=== PATIENT | female | born 2000 | race Caucasian/White ===

== ENCOUNTER → 2021-11-22 17:50 | Outpatient (BNVA) | payer MEDICAID, SELFPAY | PROVIDERS: Family Provider Internal Medicine; PCP Nurse Practitioner; Visit Provider Family Medicine | DX: Z20.822 Contact with and (suspected) exposure to COVID-19 (principal); Z20.828 Contact with and (suspected) exposure to other viral communicable diseases | CPT/HCPCS: 87426; 87635 ==

== ENCOUNTER → 2022-02-03 07:45 | Outpatient (BNVA) | payer OTHER, SELFPAY | PROVIDERS: Family Provider Internal Medicine; PCP Nurse Practitioner; Visit Provider Nurse Practitioner Women's Health | DX: N92.6 Irregular menstruation, unspecified (principal) | CPT/HCPCS: 81025 ==

== ENCOUNTER → 2022-03-02 10:12 | Outpatient (BNVA) | payer OTHER, SELFPAY | PROVIDERS: Family Provider Internal Medicine; Visit Provider Obstetrics & Gynecology | DX: Z34.90 Encounter for supervision of normal pregnancy, unspecified, unspecified trimester (principal) | CPT/HCPCS: 80307; 84315; 85027; 86592; 86762; 86803; 86850; 86900; 87086; 87340; 87806 ==

== ENCOUNTER → 2022-03-15 11:26 | Outpatient (BNVA) | payer OTHER, SELFPAY | PROVIDERS: Family Provider Internal Medicine; Visit Provider Obstetrics & Gynecology | DX: Z34.90 Encounter for supervision of normal pregnancy, unspecified, unspecified trimester (principal) | CPT/HCPCS: 84315; 87491; 87591; 88175 ==

== ENCOUNTER 2022-05-06 14:47 | Outpatient (CLI) | payer OTHER, SELFPAY ==
--- NOTE | 2022-05-06 15:00 | US_ITS ---
WS: [id number] OBSTETRICAL ULTRASOUND COMPLETE HISTORY: Z34.90 - Encounter for supervision of normal , u... COMPARISON: 02/17/2022 Single intrauterine gestation in transverse presentation. head on maternal LEFT. Cervix is Closed and normal length. Cervical length is 4.3 cm. Normal amount of amniotic fluid surrounds the fetus. Placenta: Posterior, no previa or abruption. Placenta grade 1 Heart: 144 BPM. Four chambers are identified. RIGHT and LEFT outflow tracts are unremarkable. Anatomy: Normal spine. There are very tiny choroid plexus cyst on the RIGHT. Ventricles are nor mal size. The largest cyst measures 3 mm. kidneys, stomach and urinary bladder are unremarkable . Abdominal wall, three-vessel cord and cord insertion site are normal. 4 extremities are present. profile: Unremarkable. Gender: Male. measurements: BPD = 4.6 cm = 20w0d HC = 18.3 cm = 20w5d AC = 14.9 cm = 20w1d FL = 3.4 cm = 20w5d EFW: 353 g. Biometry is internally concordant. AGA by ultrasound: 20w4d LAXMI by ultrasound: 09/19/2022 US/US OB >= 14 weeks fetus [id number] IMPRESSION: 1. Single intrauterine gestation of 20w4d with an LAXMI of 09/19/2022. Appropria te growth since the first trimester ultrasound. 2. Very small RIGHT choroid plexus cyst. As a single finding this will likely resolve and is not significant. The remaining anatomy is negative.
== END 2022-05-06 14:48 | disposition home or self-care (01) ==
PROVIDERS: PCP Clinical Nurse Specialist Adult Health; Visit Provider Obstetrics & Gynecology
DX: Z34.90 Encounter for supervision of normal pregnancy, unspecified, unspecified trimester (principal)
CPT/HCPCS: 76805

== ENCOUNTER → 2022-05-11 12:30 | Outpatient (BNVA) | payer OTHER, SELFPAY | PROVIDERS: PCP Clinical Nurse Specialist Adult Health; Visit Provider Obstetrics & Gynecology | DX: Z34.90 Encounter for supervision of normal pregnancy, unspecified, unspecified trimester (principal) | CPT/HCPCS: 81000 ==

== ENCOUNTER 2022-09-16 00:55 | Inpatient (IN) | payer OTHER, SELFPAY ==
[2022-09-15 23:00] VITALS: BP 136/88; PULSE 82
[2022-09-15 23:01] VITALS: TEMP 36
[2022-09-15 23:04] VITALS: BMI 24.3
[2022-09-15 23:15] VITALS: BP 117/74; PULSE 67
[2022-09-15 23:45] VITALS: RESP 18
[2022-09-15 23:48] VITALS: RESP 20
[2022-09-15] MEDS: fentaNYL 50 mcg/mL INJ 2mL 25 MCG IVP (23:48)
[2022-09-16] VITALS (53 sets, daily range): BP systolic 97–145; BP diastolic 52–84; PULSE 64–106; RESP 16–17; TEMP 35.9–36.8; O2SAT 98–100
[2022-09-16] LABS: Basophils % 0.3 %; Eosinophils # 0.1 10^3/uL (0.0-0.8); Eosinophils % 0.5 %; Hematocrit 36.7 % (37.0-47.0); Hemoglobin 11.9 g/dL (11.5-15.3); Lymphocytes # 1.5 10^3/uL (0.8-4.8); Lymphocytes % 14.9 %; Mean Corpuscular HGB Conc 32.4 g/dL (30.0-36.0); Mean Corpuscular Hemoglobin 27.8 pg (28.0-34.0); Mean Corpuscular Volume 85.7 fl (81-99); Mean Platelet Volume 11.6 fL (7.4-10.4); Monocytes # 0.6 10^3/uL (0.2-0.9); Monocytes % 6.2 %; Neutrophils # 7.67 10^3/uL (1.8-7.7); Nucleated Red Blood Cells % 0 %; Platelet Count 199 10^3/cmm (130-400); Red Blood Count 4.28 10^6/uL (4.1-5.3); Red Cell Distribution Width 13.7 % (12.1-15.1)
--- NOTE | 2022-09-16 00:30 | ANES.PAUD2 ---
Documented by User: Kiya Mckeon CRNA 09/16/22 00:58 Pre-Anesthetic Update Pre-Anesthetic Assessment: Date of Surgery/Procedure: 09/16/22 Preop Diagnosis: IUP Proposed Procedure: epidural Any changes to Pre-Anesthetic Assessment?: No Labs Last 48hrs: Short CBC 09/15/22 Range/Units 23:27 WBC 10.0 (4.0-10.0) 10^3/ uL Hgb 11.9 (11.5-15.3) g/dL Hct 36.7 L (37.0-47.0) % MCV 85.7 (81-99) fl Plt Count 199 (130-400) 10^3/c mm Neut % (Auto) 77.0 % Neut # (Auto) 7.67 (1.8-7.7) 10^3/u L Vitals: Temperature 97.2 F L 09/16/22 00:50 Pulse Rate 84 09/16/22 00:53 Respiratory Rate 20 H 09/15/22 23:48 Respiratory Effort Non-Labored 09/15/22 23:48 Respiratory Depth Normal 09/15/22 23:48 Respiratory Patter n 09/15/22 23:48 Blood Pressure 109/72 09/16/22 00:53 Pulse Oximetry 98 09/16/22 00:43 Exam: Pre-Anes Outpt Exam: alert and oriented x 3 Cardiac Studies: No Data to Display Documented by User: Raj Qiu 09/16/22 15:39 Pre-Anesthetic Update Pre-Anesthetic Assessment: Date of Surgery/Procedure: 09/16/22 Cardiac Studies: No Data to Display
--- NOTE | 2022-09-16 00:51 | ANES.PROC ---
Documented by User: Kiya Mckeon CRNA 09/16/22 01:07 Anesthesia Procedures Procedure/Date: 09/16/22 Epidural: Time Out Performed: Yes Consents Signed: Procedure Consent Consent: from patient, risks and benefits reviewed and patient agrees to proceed Lumbar Level: L3-L4 Epidural position: sitting Epidural procedure: sterile prep of area, 1% lidocaine to numb the area, 18 g needle, negative for paresthesia passed, test dose given, 1.5% xylocaine 1:200k epi, placed PCEA, no systemic response, sterile dressing applied, L.U.D. no apparent complications and 0.2% Ropiavacaine @ mls/hr (13) Additional Comments: THEODORE at 6, taped at 15 at skin. neg CSF/blood aspiration Documented by User: Raj Qiu 09/16/22 15:39 Anesthesia Procedures Procedure/Date: 09/16/22
[2022-09-16] MEDS: dextrose 5%-lactated ringers 1,000 ML 125 ML IV (00:52)
--- NOTE | 2022-09-16 08:57 | P.PCNOB_ITS ---
Delivery Note: Date of delivery: September 16, 2022 Pre-delivery diagnoses: 1. 22-year-old 1 at 38 weeks estimated gestational age presenting in active labor Post-delivery diagnoses: Status post spontaneous vaginal delivery Procedure: Spontaneous vaginal delivery Delivering Physician: Luciano Cortes Estimated blood loss (mL): 50 Pre-Delivery Course: The patient presented to the hospital in active labor. An epidural was placed. Spontaneous rupture of membranes occurred. She progressed to complete without difficulty. Delivery: DELIVERY: The patient progressed to complete without difficulty. She delivered a male with a weight of 7 pound 7 ounces with Apgars of 9, 9. The baby was delivered from the INDRA position and placed on the mother's abdomen. The cord was then clamped and cut. There was no nuchal cord. There was no meconium. The placenta and 3 vessel cord were delivered intact shortly thereafter. The perineum and vaginal vault were carefully examined. A first- degree posterior midline tear was noted in the vagina that had persistent bleeding that was repaired with 3-0 Vicryl in a running stitch. Both the mother and the baby were in stable condition. Post-Delivery Status: Good History History History 1 Term Miscarriages/Ectopic Living Children 0 A&P Assessment and plan (1) 38 weeks gestation of : (2) Spontaneous vaginal delivery: I anticipate routine care and probable discharge tomorrow. Coding Level of Care Code Acute Equities Trader for Chg Fwd Diagnoses 38 weeks gestation of Z3A.38 Spontaneous vaginal delivery O80
--- NOTE | 2022-09-16 09:00 | PM.OPHPUD ---
Labor & Delivery H&P Update Date of Procedure: September 16, 2022 Date H&P Performed: 09/13/22 Admission Diagnosis: 22-year-old 1 at 38 weeks estimated gestational age presenting in active labor Preop diagnosis: IUP Planned procedure: Spontaneous vaginal delivery Other information: The patient is a healthy 22-year-old female at 38 weeks estimated gestational age who presented to the hospital in active labor. She presented with contractions that are progressively more painful. She was initially placed on fentanyl, then placed on an epidural. heart tones of demonstrated good variability and accelerations. Her has been unremarkable. Her blood type is a positive, antibody negative. She is rubella immune. She passed her glucose screen. She is GBS negative. The remainder of her infectious disease profile was within normal limits. Related Problem List Diagnoses (1) 38 weeks gestation of : A&P Assessment and plan (1) 38 weeks gestation of : The patient is doing well and anticipates she will have a spontaneous vaginal delivery. Status: Acute
[2022-09-16] MEDS: ibuprofen 800 mg tablet PO ×2 (09:44→15:23)
[2022-09-16] MEDS: lanolin oint 7 gm 1 APPLIC TOPICAL (09:44)
[2022-09-16] MEDS: benzocaine-menthol 78 gm Canister 1 SPRAY TOPICAL (09:44)
[2022-09-16] MEDS: prenatal vitamin Capsule 1 CAP PO (09:44)
[2022-09-16] MEDS: docusate sodium 100 mg Capsule PO (09:44)
--- NOTE | 2022-09-16 15:39 | ANE.PACU2 ---
Inpatient post-anesthesia follow up: Airway intact: Yes Vital signs: Temperature 97.5 F Pulse Rate 73 Respiratory Rate 17 Blood Pressure 120/73 Pulse Oximetry 98 Oxygen Delivery Me thod Room Air Oxygen Flow Rate Fraction of Inspir ed Oxygen Hydration adequate: Yes Nausea and vomiting: No Pain level: 2 Mental status: Baseline
[2022-09-16 21:02] LABS: Hematocrit 32.6 % (37.0-47.0); Hemoglobin 10.6 g/dL (11.5-15.3); Mean Corpuscular HGB Conc 32.5 g/dL (30.0-36.0); Mean Corpuscular Hemoglobin 28.1 pg (28.0-34.0); Mean Corpuscular Volume 86.5 fl (81-99); Mean Platelet Volume 11.3 fL (7.4-10.4); Platelet Count 174 10^3/cmm (130-400); Red Blood Count 3.77 10^6/uL (4.1-5.3); White Blood Count 13.1 10^3/uL (4.0-10.0)
[2022-09-17 04:10] VITALS: BP 108/70; PULSE 80; RESP 16; TEMP 36.6
[2022-09-17] MEDS: docusate sodium 100 mg Capsule PO (08:07)
[2022-09-17] MEDS: prenatal vitamin Capsule 1 CAP PO (08:07)
[2022-09-17] MEDS: ibuprofen 800 mg tablet PO (08:07)
--- NOTE | 2022-09-17 09:45 | P.DS_ITS ---
Discharge Providers SENIOR TECHNICAL RECRUITER Date of Admission: 09/16/22 00:55 Date of Discharge: 09/17/22 Attending Provider at Admission: Luciano Cortes MD Attending Provider at Discharge: Luciano Cortes MD Primary Care Provider: Clayton Gallagher Diagnoses at Discharge Discharge Diagnosis (1) 38 weeks gestation of : Status: Acute Reason for Visit Reason for Visit: Contractions Hospital Course Hospital Course The patient presented to the hospital in active labor. She had fentanyl per protocol. An epidural was placed. She had spontaneous rupture of membranes. She progressed to complete and had an unremarkable delivery of a healthy appearing male infant. Her course was also unremarkable. She breast-fed well. Her bleeding was minimal. Her pain was well controlled. There were no concerns. Information Peripartum Data: Delivery Method: Vaginal Physical Exam Narrative: The patient is alert. She appears comfortable. Her heart has a regular rate and rhythm with no murmurs appreciated. Lungs are clear to auscultation bilaterally. Her fundus is firm and below the umbilicus. Urinary Catheter Management: [place] Latex: Cath Placed During This Visit: yes, but has since been removed by the nurse Reason for Continuing Indwelling Catheter: Decision to DC Catheter Urinary Catheter Date of Insertion: 09/16/22 Urinary Catheter Time of Insertion: 01:35 Date Urinary Catheter Removed: 09/16/22 Time Urinary Catheter Discontinued: 07:10 History History History 1 Term Miscarriages/Ectopic Living Children 0 Discharge Data Studies Completed and Pending Laboratory Results WBC 13.1 10^3/uL (4.0-10.0) H 09/16/22 20:44 RBC 3.77 10^6/uL (4.1-5.3) L 09/16/22 20:44 Hgb 10.6 g/dL (11.5-15.3) L 09/16/22 20:44 Hct 32.6 % (37.0-47.0) L 09/16/22 20:44 MCV 86.5 fl (81-99) 09/16/22 20:44 MCH 28.1 pg (28.0-34.0) 09/16/22 20:44 MCHC 32.5 g/dL (30.0-36.0) 09/16/22 20:44 RDW 14.0 % (12.1-15.1) 09/16/22 20:44 Plt Count 174 10^3/cmm (130-400) 09/16/22 20:44 MPV 11.3 fL (7.4-10.4) H 09/16/22 20:44 Neut % (Auto) 77.0 % 09/15/22 23:27 Lymph % (Auto) 14.9 % 09/15/22 23:27 [place] % (Auto) 6.2 % 09/15/22 23:27 Eos % (Auto) 0.5 % 09/15/22 23:27 Baso % (Auto) 0.3 % 09/15/22 23:27 Neut # (Auto) 7.67 10^3/uL (1.8-7.7) 09/15/22 23:27 Lymph # (Auto) 1.5 10^3/uL (0.8-4.8) 09/15/22 23:27 [place] # (Auto) 0.6 10^3/uL (0.2-0.9) 09/15/22 23:27 Eos # (Auto) 0.1 10^3/uL (0.0-0.8) 09/15/22 23:27 Baso # (Auto) 0.0 10^3/uL (0.0-0.1) 09/15/22 23:27 Nucleated RBC % (auto) 0 % 09/15/22 23: Nucleated RBCs # 0.0 /100WBC 09/15/22 23:27 Vitals Last Vital Signs Temp 97.9 F 09/17/22 04:10 Pulse 80 09/17/22 04:10 Resp 16 09/17/22 04:10 BP 108/70 09/17/22 04:10 Pulse Ox 98 09/16/22 00:43 O2 Del Method 09/16/22 19:10 Discharge Plan Discharge Patient Disposition: Home Condition: Stable Prescriptions: New ibuprofen 800 mg Tablet 800 mg PO TID Qty: 45 0RF No Action DHA 200 mg capsule 1 mg PO DAILY Discharge Orders: Discharge Order (Routine); Ordered 09/17/22 Ordered By: Luciano Cortes Referrals: Luciano Cortes MD [Physician] - 6 Weeks Discharge Diet: Usual diet Discharge Activity: Limit activity as instructed Patient Instructions: Depression (GEN), Bleeding (GEN), Preeclampsia and Eclampsia After Delivery (GEN), Vaginal Delivery (GEN), COVID- 19 and (GEN), OB Discharge Report, OB Food/Drug Interaction Guide, OB Care at Home, Opioid Safety, OB Home Care, OB Vaginal Deliveries, Abnormal Bleeding Discharge Attestations SENIOR TECHNICAL RECRUITER Time Spent in Discharge Care*: less than 30 min Coding Level of Care Code Acute Dialysis Social Worker for Chg Fwd Diagnoses 38 weeks gestation of Z3A.38
[2022-09-17 10:45] VITALS: BP 119/86; PULSE 101; RESP 14; TEMP 36.8
== END 2022-09-17 11:06 | disposition home or self-care (01) | DRG 807 ==
LOC: OPOB 00:56 → OBGYN 00:56
PROVIDERS: Admitting Provider Family Medicine; PCP Clinical Nurse Specialist Adult Health; Visit Provider Family Medicine
DX: O70.0 First degree perineal laceration during delivery (principal); Z37.0 Single live birth; Z3A.38 38 weeks gestation of pregnancy
CPT/HCPCS: 12345; 36415; 51702; 59025; 59409; 85025; 85027; 96374; 96376; 98960; 99211; J2795; J3010; J7121

== ENCOUNTER 2023-09-01 18:46 | Emergency (ER) | payer SELFPAY ==
[2023-09-01 18:48] VITALS: BP 132/96; PULSE 87; RESP 18; TEMP 36.5; O2SAT 97; BMI 20.1
--- NOTE | 2023-09-01 18:57 | ED_ITS ---
HPI - Nausea/Vomiting/Diarrhea General: Chief complaint: Nausea/Vomiting/Diarrhea Stated complaint: N/V Time Seen by Provider: 09/01/23 18:54 History of Present Illness: 23-year-old female comes in today with episodes of nausea vomiting for about 2 weeks. Patient reports . Patient reports for the last 2 to 3 days she has had some yellowish diarrhea stools with foul smell. Patient denies any blood in vomit or stool. Patient reports no severe pain. Patient has had 2 p regnancies with 1 delivery. This is patient's second and is about 8 weeks. Patient takes a vitamin daily. Patient takes no medications for nausea or vomiting. Patient had limited oral intake due to nausea and vomiting. Associated nausea: Yes Associated symtoms: Reports nausea; Denies chest pain or malaise Review of Systems General: Reports: 10 or more systems reviewed and unremarkable except in HPI and below Const: Denies: fever(s) or malaise ENMT: Denies: throat pain Card: Denies: chest pain Resp: Denies: dyspnea GI: Reports: nausea, vomiting and diarrhea; Denies: constipation : Denies: flank pain, difficulty voiding, vaginal bleeding or vaginal discharge Musc: Denies: neck pain or back pain Skin/Breast: Denies: rash PFSH ED PFSH: Medical History No pertinent past medical history Denies diabetes, asthma, hypertension, seizures, DVT/PE PCP: ARLEN Fowler Surgical History History of wisdom tooth extraction Family History Grandfather Diabetes paternal Hyperlipidemia paternal Stroke maternal Heart disease paternal-AFIB Father Heart disease AFIB Denies family history of Colon cancer Ovarian cancer Breast cancer Hypertension Uterine cancer Thyroid disease Physical Exam Const: COMMON NORMALS: alert HENMT: COMMON NORMALS: normocephalic HEAD & SCALP: normocephalic Neck/C-Spine: COMMON NORMALS: full ROM and no meningeal signs Resp: COMMON NORMALS: normal respiratory effort and clear to auscultation bilaterally AUSCULTATION: clear to auscultation bilaterally Cardio: COMMON NORMALS: regular rate and regular rhythm RATE: regular rate RHYTHM: regular rhythm GI: COMMON NORMALS: Soft to palpation AUSCULTATION: Yes normoactive bowel sounds PALPATION: Yes Soft to palpation and No Tenderness to palpation present (GI) : COMMON NORMALS: Yes no CVA tenderness BLADDER/KIDNEY EXAM: Yes no CVA tenderness Back/Pelvis: COMMON NORMALS: no CVA tenderness Extremity: COMMON NORMALS: normal to inspection and no pedal edema Neuro: SENSORIUM/ORIENTATION: Yes alert MENINGEAL SIGNS: Yes no meningeal signs Skin: COMMON NORMALS: turgor normal GENERAL SKIN EXAM: turgor normal Course Vital Signs: Vital signs: Vital Signs Temperature 97.7 F 09/01/23 18:48 Pulse Rate 66 09/01/23 20:23 Respiratory Rate 18 09/01/23 20:23 Blood Pressure 111/83 09/01/23 20:23 Pulse Oximetry 100 09/01/23 20:23 Oxygen Delivery Me thod Room Air 09/01/23 20:23 MDM - Nausea/Vomiting/Diarrhea Medical Decision Making Patient presents today with complaints of nausea vomiting for the last 2 weeks related to her . Patient was more concerned today due to increased diarrhea stools for the last 2 to 3 days. Patient denies fever. Patient denies blood in vomit or stool. Patient appears nontoxic. Patient appears in no pain. Abdomen soft nontender. Lungs are clear to auscultation. Vital signs are normal. Differential diagnosis includes but not limited to gastroenteritis, dehydration, gallbladder disease, hyperemesis gravidarum. CBC and CMP were unremarkable. Urinalysis noted no signs of infection. Patient was given 1 L of IV fluids with improvement of nausea and reported feeling better. Reviewed recommendations for nausea and vomiting during . Stated there was no signs of severe illness at this time. Recommended follow-up with PLASTICS SPREADING MACHINE OPERATOR for further instructions return to ED for new concerns. Patient reported understanding and agreed to plan. Lab Data 09/01/23 19:12 09/01/23 19:12 Laboratory Results WBC 5.99 10^3/uL (3.29-11.43) 09/01/23 19:12 RBC 5.13 10^6/uL (3.85-5.65) 09/01/23 19:12 Hgb 14.40 g/dL (11.27-16.99) 09/01/23 19:12 Hct 42.8 % (36-47) 09/01/23 19:12 MCV 83.4 fl (85-98) L 09/01/23 19:12 MCH 28.1 pg (27-33) 09/01/23 19:12 MCHC 33.6 g/dL (30-55) 09/01/23 19:12 RDW 12.5 % (12.1-15.1) 09/01/23 19:12 Plt Count 263 10^3/cmm (157-399) 09/01/23 19:12 MPV 10.0 fL (7.4-10.4) 09/01/23 19:12 Neut % (Auto) 74.5 % 09/01/23 19:12 Lymph % (Auto) 16.7 % 09/01/23 19:12 [place] % (Auto) 7.3 % 09/01/23 19:12 Eos % (Auto) 0.7 % 09/01/23 19:12 Baso % (Auto) 0.5 % 09/01/23 19:12 Neut # (Auto) 4.46 10^3/uL (1.8-7.7) 09/01/23 19:12 Lymph # (Auto) 1.0 10^3/uL (0.8-4.8) 09/01/23 19:12 [place] # (Auto) 0.4 10^3/uL (0.2-0.9) 09/01/23 19:12 Eos # (Auto) 0.0 10^3/uL (0.0-0.8) 09/01/23 19:12 Baso # (Auto) 0.0 10^3/uL (0.0-0.1) 09/01/23 19:12 Nucleated RBC % (auto) 0 % 09/01/23 19:12 Nucleated RBCs # 0.0 /100WBC 09/01/23 19:12 Sodium 135 mmol/L (136-145) L 09/01/23 19:12 Potassium 3.7 mmol/L (3.5-5.1) 09/01/23 19:12 Chloride 101 mmol/L (98-107) 09/01/23 19:12 Carbon Dioxide 22 mmol/L (22-29) 09/01/23 19:12 Anion Gap 15.7 (5-19) 09/01/23 19:12 BUN 10 mg/dL (6-20) 09/01/23 19:12 Creatinine 0.6 mg/dL (0.5-0.9) 09/01/23 19:12 GFR Calculation 121.8 mL/min (90-130) 09/01/23 19:12 Glucose 81 mg/dL (65-115) 09/01/23 19:12 Calculated Osmolality 278 mOsm/kg (285-295) L 09/01/23 19:12 Calcium 9.2 mg/dL (8.5-10.5) 09/01/23 19:12 Total Bilirubin 0.4 mg/dL (0.15-1.2) 09/01/23 19:12 AST 13 U/L (0-32) 09/01/23 19:12 ALT 15 U/L (0-33) 09/01/23 19:12 Alkaline Phosphatase 78 U/L (35-105) 09/01/23 19:12 Total Protein 7.0 g/dL (6.6-8.7) 09/01/23 19:12 Albumin 4.5 g/dL (3.5-5.2) 09/01/23 19:12 Globulin 2.5 g/dL (1.3-4.6) 09/01/23 19:12 Lipase 21 U/L (13-60) 09/01/23 19:12 Ser , Semi-Qnt 00283.00 mIU/mL 09/01/23 19:12 Urine Color Yellow (Yellow) 09/01/23 19:43 Urine Appearance Cloudy (CLEAR) A 09/01/23 19:43 Urine pH 5 (5-7) 09/01/23 19:43 Ur Specific [place] 1.025 (1.005-1.030) 09/01/23 19:43 Urine Protein Trace (Negative) 09/01/23 19:43 Urine Glucose (UA) Norm (Normal) 09/01/23 19:43 Urine Ketones 3+ (Negative) H 09/01/23 19:43 Urine Blood 3+ (Negative) H 09/01/23 19:43 Urine Nitrate Negative (Negative) 09/01/23 19:43 Urine Bilirubin 1+ (Negative) H 09/01/23 19:43 Urine Urobilinogen 1 mg/dL (Negative) H 09/01/23 19:43 Ur Leukocyte Esterase 2+ (Negative) H 09/01/23 19:43 Urine RBC 5-10 /hpf (0-2) H 09/01/23 19:43 Urine WBC 5-10 /hpf (0-5) H 09/01/23 19:43 Ur Squamous Epith Cells 25-40 /hpf (0-5) H 09/01/23 19:43 Amorphous Sediment 3+ /hpf 09/01/23 19:43 Urine Bacteria 1+ /hpf (NONE) H 09/01/23 19:43 Urine Mucus 2+ /hpf 09/01/23 19:43 No radiology studies performed this visit Discharge Plan Discharge Patient Disposition: Home Clinical Impression: Hyperemesis arising during , Dehydration Condition: Stable Prescriptions: No Action DHA 200 mg capsule 1 mg PO DAILY ibuprofen 800 mg Tablet 800 mg PO TID Qty: 45 0RF Discharge Orders: Discharge ED (Routine); Ordered 09/01/23 Ordered By: Gregory Ramirez Referrals: Clayton Gallagher NP [Primary Care Provider] - Discharge Diet: Usual diet Discharge Activity: Increase activity as tolerated Patient Instructions: Hyperemesis Gravidarum (ED) Activity Restrictions/Additional Instructions: Keep pushing plenty of fluids. Use electrolyte solutions to contain electrolytes. Try to eat some carbohydrates in order to form stool and help with nausea. Sometimes saltine crackers can be beneficial for this. Use [id number] Unisom 2 times a day to help control nausea. Follow-up with PLASTICS SPREADING MACHINE OPERATOR for other instructions. Return to ED for worsening symptoms or new concerns. Coding Level of Care Code ED Creative Director for Kristen Linares
[2023-09-01 19:20] LABS: Basophils % 0.5 %; Eosinophils % 0.7 %; Hematocrit 42.8 % (36-47); Lymphocytes % 16.7 %; Mean Corpuscular HGB Conc 33.6 g/dL (30-55); Mean Corpuscular Hemoglobin 28.1 pg (27-33); Mean Corpuscular Volume 83.4 fl (85-98); Monocytes # 0.4 10^3/uL (0.2-0.9); Monocytes % 7.3 %; Neutrophils # 4.46 10^3/uL (1.8-7.7); Neutrophils % 74.5 %; Nucleated Red Blood Cells % 0 %; Platelet Count 263 10^3/cmm (157-399); Red Blood Count 5.13 10^6/uL (3.85-5.65); Red Cell Distribution Width 12.5 % (12.1-15.1); White Blood Count 5.99 10^3/uL (3.29-11.43)
[2023-09-01] MEDS: sodium chloride 0.9% 1,000 ML 999 ML IV (19:43)
[2023-09-01 19:57] LABS: Alanine Aminotransferase 15 U/L (0-33); Albumin Level 4.5 g/dL (3.5-5.2); Alkaline Phosphatase 78 U/L (35-105); Anion Gap 15.7 (5-19); Aspartate Amino Transferase 13 U/L (0-32); Blood Urea Nitrogen 10 mg/dL (6-20); Calcium 9.2 mg/dL (8.5-10.5); Carbon Dioxide 22 mmol/L (22-29); Chloride 101 mmol/L (98-107); Globulin 2.5 g/dL (1.3-4.6); Glomerular Filtration Rate 121.8 mL/min (90-130); Glucose 81 mg/dL (65-115); Lipase 21 U/L (13-60); Osmolality Calculated 278 mOsm/kg (285-295); Potassium 3.7 mmol/L (3.5-5.1); Sodium 135 mmol/L (136-145); Total Bilirubin 0.4 mg/dL (0.15-1.2)
[2023-09-01 20:18] LABS: Add Urine Microscopic? YES; Bilirubin Urine 1+ (Negative); Blood Urine 3+ (Negative); Glucose Urine UA Norm (Normal); Ketones Urine 3+ (Negative); Leukocyte Esterase Urine 2+ (Negative); Nitrate Urine Negative (Negative); Protein Urine Trace (Negative); Specific Gravity, Urine 1.025 (1.005-1.030); Squamous Epithelial Cell Urine 25-40 /hpf (0-5); Urine Appearance Cloudy (CLEAR); Urine Color Yellow (Yellow); Urobilinogen Urine 1 mg/dL (Negative); pH Urine 5 (5-7)
[2023-09-01 20:19] LABS: Add Urine Culture? No; Amorphous Sediment Urine 3+ /hpf; Bacteria Urine 1+ /hpf; Mucus Urine 2+ /hpf
[2023-09-01 20:23] VITALS: BP 111/83; PULSE 66; RESP 18; O2SAT 100
[2023-09-01 20:38] VITALS: BP 102/69; PULSE 66; RESP 16; O2SAT 99
== END 2023-09-01 20:39 | disposition home or self-care (01) ==
PROVIDERS: Emergency Provider Nurse Practitioner Family; PCP Clinical Nurse Specialist Adult Health
DX: O21.0 Mild hyperemesis gravidarum (principal); Z3A.08 8 weeks gestation of pregnancy; E86.0 Dehydration
CPT/HCPCS: 36415; 80053; 81001; 83690; 84702; 85025; 99284; J7030

== ENCOUNTER 2023-10-20 14:49 | Outpatient (CLI) | payer MEDICAID, SELFPAY ==
--- NOTE | 2023-10-20 14:53 | US_ITS ---
WS: [id number] Exam: US OB <= 14 weeks fetus [id number] Date/Time of Exam: 10/20/2023 3:00 PM Reason For Exam: SUPERVISION OF NORMAL FIRST TRIMESTER : 2 Para: 1 Findings: Heart rate 167 bpm anterior fundal placenta. Amniotic fluid volume appears adequate. presentation is breech Cervix is closed Single live intrauterine . Axson rump length measuring 8.6 cm. Gestational sac measures N/A cardiac tones 167 BPM. Estimated date of delivery 04/15/2024. Uterus measures 10.2 cm x 11.9 x cm 12.7 cm. Right ovary measures 2.0 cm x 2.6 cm x 3.0 cm. Left ovary not seen IMPRESSION: 1. Viable intrauterine with single fetus estimated at 14 weeks 4 days gestational age. No c omplications identified.
== END 2023-10-20 14:50 | disposition home or self-care (01) ==
LOC: RAD 14:49
PROVIDERS: PCP Clinical Nurse Specialist Adult Health; Visit Provider Family Medicine
DX: Z34.81 Encounter for supervision of other normal pregnancy, first trimester (principal)
CPT/HCPCS: 76801

== ENCOUNTER 2024-04-12 23:00 | Inpatient (IN) | payer MEDICAID, SELFPAY ==
[2024-04-12 19:08] VITALS: BMI 24.9
[2024-04-12 19:51] VITALS: TEMP 35.9
[2024-04-12 20:00] VITALS: BP 121/72; PULSE 93
[2024-04-12 20:21] LABS: Basophils % 0.3 %; Eosinophils # 0.1 10^3/uL (0.0-0.8); Eosinophils % 0.7 %; Hematocrit 36.4 % (36-47); Lymphocytes # 1.5 10^3/uL (0.8-4.8); Lymphocytes % 20.4 %; Mean Corpuscular HGB Conc 32.1 g/dL (30-55); Mean Corpuscular Hemoglobin 26.4 pg (27-33); Mean Platelet Volume 11.3 fL (7.4-10.4); Monocytes # 0.4 10^3/uL (0.2-0.9); Neutrophils # 5.14 10^3/uL (1.8-7.7); Neutrophils % 71.8 %; Nucleated Red Blood Cells % 0 %; Platelet Count 193 10^3/cmm (157-399); Red Blood Count 4.44 10^6/uL (3.85-5.65); Red Cell Distribution Width 16.4 % (12.1-15.1); White Blood Count 7.16 10^3/uL (3.29-11.43)
[2024-04-12 20:24] VITALS: BP 114/62; PULSE 76
[2024-04-12] MEDS: miSOPROStol 100 mcg tablet 25 MCG VAGINAL (20:36)
[2024-04-12 20:54] VITALS: BP 106/57; PULSE 65
[2024-04-12 22:39] VITALS: BP 93/53; PULSE 77
[2024-04-13] VITALS (33 sets, daily range): BP systolic 101–138; BP diastolic 54–89; PULSE 67–91; RESP 15–17; TEMP 36.4–36.7; O2SAT 87–100
[2024-04-13] MEDS: lactated ringers 1,000 ML 999 ML IV (02:15)
[2024-04-13] MEDS: fentaNYL 50 mcg/mL INJ 2mL IVP (02:22)
--- NOTE | 2024-04-13 02:53 | P.ANESASSM_ITS ---
Pre-Anesthetic Assessment Height/Weight: Height 1.7 m Weight 72.121 kg Temp Pulse Resp BP O2 Del Method 96.6 F L 72 16 119/80 Room Air 04/12/24 19:51 04/13/24 02:11 04/13/24 02:22 04/13/24 02:11 04/12/24 23:51 Preop Diagnosis: labor pain epidural Was Beta Erika taken within 24 hours: N/A Was Clonidine taken within 24 hours: N/A Exam alert, oriented x 3, clear to auscultation bilaterally and regular rate & rhythm Airway Submandibular: within normal limits Cervical ROM: within normal limits Mallampati: Class II Dentition: full Pulmonary None reported CV/HEM None reported None reported Hepatic None reported Metabolic None reported Musc/skel None reported Neuropsych None reported Anesthetic Plan ASA status: 2 Risk of > 500 ml blood loss (7ml/kg in children): No Medications/Allergies Home Medications Medication Instructions Recorded Confirmed Last Taken Type [id number] 1 mg 1 tab PO DAILY 04/12/24 04/12/24 04/12/24 History tablet 1 Allergies Allergy/AdvReac Type Severity Reaction Status Date / Time No Known Allergies Allergy Verified 04/12/24 20:59 Current Medications Generic Name Dose Route Start Last Admin Trade Name Freq PRN Reason Stop Dose Admin Fentanyl 25 - 100 mcg 04/12/24 20:07 04/13/24 02:22 Fentanyl 50 Mcg/Ml Inj 2ml IVP 25 mcg Q1H PRN Administration SEVERE PAIN Lactated Ringer's 1,000 mls @ 999 mls/hr 04/13/24 02:00 04/13/24 02:15 Lactated Ringers IV 999 mls/hr .Q1H1M PRN Administration See label comments [facility] Anesthesia Medical History No pertinent past medical history Denies diabetes, asthma, hypertension, seizures, DVT/PE PCP: ARLEN Fowler Surgical History History of wisdom tooth extraction Family History Grandfather Diabetes paternal Hyperlipidemia paternal Stroke maternal Heart disease paternal-AFIB Father Heart disease AFIB Denies family history of Colon cancer Ovarian cancer Breast cancer Hypertension Uterine cancer Thyroid disease Female Reproductive History : 2 Data Anesthesia 04/12/24 20:00 Short CBC 04/12/24 Range/Units 20:00 WBC 7.16 (3.29-11.43) 10^3/uL Hgb 11.70 (11.27-16.99) g/dL Hct 36.4 (36-47) % MCV 82.0 L (85-98) fl Plt Count 193 (157-399) 10^3/cmm Neut % (Auto) 71.8 % Neut # (Auto) 5.14 (1.8-7.7) 10^3/uL Blood Bank 04/12/24 20:00 Blood Type A Positive Rho(D) Type Rh positive Antibody Screen Negative Cardiac Studies: 2 No Data to Display
[2024-04-13] MEDS: ROPivacaine syringe 100 MG/50 ML SYRINGE 13 MG EPIDURAL (03:11)
--- NOTE | 2024-04-13 03:18 | P.ANES_ITS ---
Anesthesia Procedures Procedure/Date: 04/13/24 epidural Procedure Narrative: epidural complete, bolus given, epidural pump initiated with STOCKROOM INVENTORY CLERK education given, vitals taken during procedure and satisfactory throughout, patient admits to decrease pain, report of procedure to OB RN Epidural: Time Out Performed: Yes Consents Signed: Procedure Consent Consent: requested by attending/covering physician, from patient, risks and benefits reviewed and patient agrees to proceed Lumbar Level: L3-L4 Ep idural position: sitting Epidural procedure: sterile prep of area, 1% lidocaine to numb the area (3 mL), 18 g needle, negative for paresthesia passed, neg for paresthesia, test dose given, 1.5% xylocaine 1:200k epi (5 mL), 0.2% Ropivacaine bolus ml (5 mL), placed PCEA, no systemic response, sterile dressing applied, L.U.D. no apparent complications and 0.2% Ropiavacaine @ mls/hr (13 mL/hr)
[2024-04-13] MEDS: oxytocin 30 UNIT/500 ML BAG 600 UNIT IV (03:39)
--- NOTE | 2024-04-13 03:48 | PM.OPHPUD ---
Labor & Delivery H&P Update Date of Procedure: April 13, 2024 Date H&P Performed: 04/09/24 Changes to previous documentation: The patient was having infrequent contractions happening every 10 minutes. Admission Diagnosis: 23-year-old 1 at 39 weeks estimated gestational age presenting for elective induction. Preop diagnosis: labor pain Planned procedure: Spontaneous vaginal delivery Other information: The patient is a 23-year-old 2 para 1-0-0-1 at 39 weeks estimated gestational age presenting for induction. The patient has had an unremarkable . We discussed the advantages of waiting to allow her body to go into labor on its own. We discussed the risks associated with induction. Regardless, she had a strong desire to have an induction and we elected proceed accordingly. Her blood type is a positive. Her antibody screen is negative. Her 1 hour glucose screen was 147 and she declined to have her 3-hour screening done. She is rubella immune. The remainder of her infectious disease profile is within normal limits. Related Problem List Diagnoses (1) 39 weeks gestation of : A&P Assessment and plan (1) 39 weeks gestation of : I anticipate routine labor and vaginal delivery. Status: Acute
--- NOTE | 2024-04-13 03:56 | PM.DELIVERY ---
Delivery Note: Date of delivery: April 13, 2024 Pre-delivery diagnoses: 23-year-old 2 para 1-0-0-1 at 39 weeks and 5 days Post-delivery diagnoses: Status post spontaneous vaginal delivery Delivering Physician: Luciano Cortes Estimated blood loss (mL): 100 Pre-Delivery Course: The patient presented to the hospital the night prior to delivery and was placed on Cytotec 25 mcg x 1. An epidural was at attempted, but she did not get good pain control with it. She then progressed to complete without difficulty. Delivery: DELIVERY: The patient progressed to complete without difficulty. She delivered a female with a weight of 8 pounds 0 ounces with Apgars of 9, 10. The baby was delivered from the INDRA position. and placed on the mother's abdomen. The cord was then clamped and cut 1 minute after delivery. There was no nuchal cord. There was no meconium. The placenta and 3 vessel cord were delivered intact shortly thereafter. The perineum and vaginal vault were carefully examined. No lacerations were noted. Both the mother and the baby were in stable condition. History History History 2 Term 1 Miscarriages/Ectopic Living Children 1 A&P Assessment and plan (1) Spontaneous vaginal delivery: I anticipate routine care. (2) 39 weeks gestation of : Coding Level of Care Code Acute Code for Chg Fwd Diagnoses Spontaneous vaginal delivery O80 39 weeks gestation of Z3A.39
[2024-04-13] MEDS: HYDROcodone-acetaminophen 5-325 mg Tablet PO (04:21)
[2024-04-13] MEDS: PRENATAL VIT NO.130/IRON/FOLIC 1 EACH TABLET PO (08:36)
[2024-04-13] MEDS: docusate sodium 100 mg Capsule PO ×2 (08:36→20:25)
[2024-04-13] MEDS: ibuprofen 800 mg tablet PO ×3 (08:36→20:25)
[2024-04-13 15:54] LABS: Hematocrit 32.6 % (36-47); Mean Corpuscular HGB Conc 32.5 g/dL (30-55); Mean Corpuscular Hemoglobin 26.8 pg (27-33); Mean Corpuscular Volume 82.3 fl (85-98); Mean Platelet Volume 11.1 fL (7.4-10.4); Platelet Count 148 10^3/cmm (157-399); Red Blood Count 3.96 10^6/uL (3.85-5.65); Red Cell Distribution Width 16.5 % (12.1-15.1); White Blood Count 7.92 10^3/uL (3.29-11.43)
[2024-04-14 05:02] VITALS: BP 96/57; PULSE 67; RESP 16; TEMP 36.7; O2SAT 98
--- NOTE | 2024-04-14 09:00 | PM.OBGYDC ---
Discharge Providers ACCOUNTS PAYABLE TECHNICIAN Date of Admission: 04/12/24 23:00 Date of Discharge: 04/14/24 Attending Provider at Admission: Luciano Cortes MD Attending Provider at Discharge: Luciano Cortes MD Primary Care Provider: Clayton Gallagher Diagnoses at Discharge Discharge Diagnosis (1) Spontaneous vaginal delivery: Status: Acute (2) 39 weeks gestation of : Status: Acute Reason for Visit Reason for Visit: IOL Hospital Course Hospital Course The patient presented to the hospital in active labor. An epidural was placed but was ineffective. An amniotomy was performed minutes before delivery of the baby. The delivery was unremarkable Vertex delivery. See delivery note for details. Her course was also unremarkable. She breast-fed well. Her bleeding was within normal limits. Her pain was well-controlled. There were no concerns. Information Peripartum Data: Delivery Method: Vaginal Physical Exam Narrative: The patient is alert. She appears comfortable. Her heart has a regular rate and rhythm with no murmurs appreciated. Lungs are clear to auscultation bilaterally. Her fundus is firm and below the umbilicus. History History History 2 Term 1 Miscarriages/Ectopic Living Children 1 Discharge Data Studies Completed and Pending Laboratory Results WBC 7.92 10^3/uL (3.29-11.43) 04/13/24 15:45 RBC 3.96 10^6/uL (3.85-5.65) 04/13/24 15:45 Hgb 10.60 g/dL (11.27-16.99) L 04/13/24 15:45 Hct 32.6 % (36-47) L 04/13/24 15:45 MCV 82.3 fl (85-98) L 04/13/24 15:45 MCH 26.8 pg (27-33) L 04/13/24 15:45 MCHC 32.5 g/dL (30-55) 04/13/24 15:45 RDW 16.5 % (12.1-15.1) H 04/13/24 15:45 Plt Count 148 10^3/cmm (157-399) L 04/13/24 15:45 MPV 11.1 fL (7.4-10.4) H 04/13/24 15:45 Neut % (Auto) 71.8 % 04/12/24 20:00 Lymph % (Auto) 20.4 % 04/12/24 20:00 Lamb % (Auto) 6.0 % 04/12/24 20:00 Eos % (Auto) 0.7 % 04/12/24 20:00 Baso % (Auto) 0.3 % 04/12/24 20:00 Neut # (Auto) 5.14 10^3/uL (1.8-7.7) 04/12/24 20:00 Lymph # (Auto) 1.5 10^3/uL (0.8-4.8) 04/12/24 20:00 Lamb # (Auto) 0.4 10^3/uL (0.2-0.9) 04/12/24 20:00 Eos # (Auto) 0.1 10^3/uL (0.0-0.8) 04/12/24 20:00 Baso # (Auto) 0.0 10^3/uL (0.0-0.1) 04/12/24 20:00 Nucleated RBC % (auto) 0 % 04/12/24 20:00 Nucleated RBCs # 0.0 /100WBC 04/12/24 20:00 Blood Type A Positive 04/12/24 20:00 Rho(D) Type Rh positive 04/12/24 20:00 Antibody Screen Negative 04/12/24 20:00 Vitals Last Vital Signs Temp 98.1 F 04/14/24 05:02 Pulse 67 04/14/24 05:02 Resp 16 04/14/24 05:02 BP 96/57 04/14/24 05:02 Pulse Ox 98 04/14/24 05:02 O2 Del Method Room Air 04/14/24 05:02 Results Labs OB ([facility]): Obstetrics US 02/17/22 Blood Type A Positive 04/12/24 Antibody Screen Negative 04/12/24 Hct 32.6 % (36-47) L 04/13/24 Hgb 10.60 g/dL (11.27-16.99) L 04/13/24 Rho(D) Type Rh positive 04/12/24 Plt Count 148 10^3/cmm (157-399) L 04/13/24 Hep Bs Antigen Non-reactive (Nonreactive) 03/02/22 Hep Bs Antibody 9.0 (11.5-1000) L 06/14/21 Hepatitis C Antibody Non-reactive (Nonreactive) 03/02/22 Rubella IgG Antibody 55.2 IU/mL (0.0-10.0) H 03/02/22 RPR Nonreactive (Nonreactive) 03/02/22 HIV 1&2 Ab & HIV 1 Ag Non-reactive (Non-Reactiv) 03/02/22 VZV IgG Antibody 529.30 index 06/14/21 Ser , Semi-Qnt 00085.00 mIU/mL 09/01/23 HCG, Qual Positive (Negative) H 02/03/22 Urine Opiates Screen Negative ng/mL (Negative) 03/02/22 Ur Barbiturates Screen Negative ng/mL (Negative) 03/02/22 Ur Phencyclidine Scrn Negative ng/mL (Negative) 03/02/22 Ur Amphetamines Screen Negative ng/mL (Negative) 03/02/22 U Benzodiazepines Scrn Negative ng/mL (Negative) 03/02/22 Urine Cocaine Screen Negative ng/mL (Negative) 03/02/22 U Marijuana (THC) Screen Negative ng/mL (Negative) 03/02/22 Micro Urine Specimen 03/02/22 Pap Smear Interpret See note 03/15/22 Discharge Plan Discharge Patient Disposition: Home Condition: Stable Prescriptions: New ibuprofen 800 mg Tablet 800 mg PO TID Qty: 45 0RF Continued [id number] 1 mg Tablet 1 tab PO DAILY Discharge Orders: Discharge Order (Routine); Ordered 04/14/24 Ordered By: Luciano Cortes Referrals: Luciano Cortes MD [Physician] - 6 Weeks Discharge Diet: Usual diet Discharge Activity: Limit activity as instructed Patient Instructions: Depression (DC), Opioid Safety (DC), Preeclampsia and Eclampsia After Delivery (GEN), Hemorrhage (DC), OB Discharge Report, OB Food/Drug Interaction Guide, OB Care at Home, Opioid Safety, OB Vaginal Deliveries, Abnormal Bleeding Discharge Attestations ACCOUNTS PAYABLE TECHNICIAN Time Spent in Discharge Care*: less than 30 min Coding Level of Care Code Acute Code for Chg Fwd Diagnoses Spontaneous vaginal delivery O80 39 weeks gestation of Z3A.39
--- NOTE | 2024-04-14 09:43 | ANE.PACU2 ---
Inpatient post-anesthesia follow up: Airway intact: Yes Vital signs: Temperature 98.1 F Pulse Rate 67 Respiratory Rate 16 Blood Pressure 96/57 Pulse Oximetry 98 Oxygen Delivery Me thod Room Air Oxygen Flow Rate Fraction of Inspir ed Oxygen Hydration adequate: Yes Nausea and vomiting: No Pain level: 2 Mental status: Baseline Epidural Start/End: Epidural Start Date: 04/13/24 Epidural Start Time: 02:57 Epidural End Date: 04/14/24 Epidural End Time: 03:56
[2024-04-14 11:40] VITALS: BP 115/76; PULSE 78; RESP 16; TEMP 36.8; O2SAT 99
== END 2024-04-14 11:50 | disposition home or self-care (01) | DRG 807 ==
LOC: OPOB 04-13 03:48 → OBGYN 04-13 03:48
PROVIDERS: Admitting Provider Family Medicine; PCP Clinical Nurse Specialist Adult Health; Visit Provider Family Medicine
DX: O80 Encounter for full-term uncomplicated delivery (principal); Z37.0 Single live birth; Z3A.39 39 weeks gestation of pregnancy
CPT/HCPCS: 36415; 59025; 59409; 85025; 85027; 86850; 86900; 99211; J2590; J2795; J3010; J7120